=== PATIENT | female | born 1970 | race Caucasian/White ===

== ENCOUNTER 2016-09-15 17:53 | Emergency (ER) | payer OTHER ==
[~2016-09-15] VITALS: Ht 160 cm; Wt 85.8 kg
[~2016-09-15 17:53] MED LIST: ANAS1TAB19 PO; GOSE3.6I; LEVO125T4 PO; LOSA50TA6 PO; [UNRECOGNIZED DRUG - OTHER] PO; [UNRECOGNIZED DRUG - OTHER] PO
[2016-09-15 18:13] VITALS: BP 139/87; PULSE 50; TEMP 36.7; O2SAT 98; Ht 160 cm; Wt 85.8 kg
[2016-09-16] MEDS ORDERED: MULT-506 PO (14:00)
[2016-09-16] MEDS ORDERED: ZINC1TAB PO (14:00)
[2016-09-16] MEDS ORDERED: CZR25 PO (14:00)
== END 2016-09-15 19:27 | disposition left against medical advice (07) ==
LOC: C.EDB 17:55
DX: M79.89 Other specified soft tissue disorders (principal)

== ENCOUNTER 2016-09-16 13:30 | Emergency (ER) | payer OTHER ==
[~2016-09-16] VITALS: Ht 160 cm; Wt 86.0 kg
[2016-09-16 13:32] VITALS: TEMP 37; Ht 160 cm; Wt 86.0 kg
[2016-09-16] MEDS ORDERED: ZINC1TAB PO (14:00)
[2016-09-16] MEDS ORDERED: CZR25 PO (14:00)
[2016-09-16] MEDS ORDERED: MULT-506 PO (14:00)
[2016-09-16 14:41] LABS: BASO % 0.7 %; BASO ABS # 0.04 K/uL (0-0.2); COMPLETE YES; EOS % 3.4 %; HEMATOCRIT 40.3 % (37-47); IG% 0.2 %; LYMPH % 26.2 %; LYMPH ABS # 1.48 K/uL (1.2-3.4); MEAN CELL VOLUME 84.7 fL (80-100); MEAN CORPUSCULAR HEMOGLOBIN 28.6 pg (25-34); MEAN CORPUSCULAR HGB CONC 33.7 g/dl (32-36); MEAN PLATELET VOLUME 10.2 fL (7.4-10.4); MONO % 6.4 %; NEUT % 63.1 %; PLATELET COUNT 272 K/uL (130-400); RED BLOOD COUNT 4.76 M/uL (4.2-5.4); WHITE BLOOD COUNT 5.64 K/uL (4.8-10.8)
[2016-09-16 14:51] LABS: PROTHROMBIN TIME (PATIENT) 10.4 SECONDS (9.0-12.0)
--- NOTE | 2016-09-16 14:53 | DIAGNOSTIC IMAGING REPORT ---
ULTRASOUND VENOUS DOPPLER ULTRASOUND OF THE LEFT UPPER EXTREMITY CLINICAL HISTORY: Left arm swelling COMPARISON STUDY: No previous studies for comparison. FINDINGS: No intraluminal thrombus was visualized. The internal jugular, subclavian, axillary, cephalic, brachial, basilic, radial, and ulnar veins were patent. IMPRESSION: No evidence of left upper extremity DVT. Electronically signed by: Kyle Davis M.D. 09/16/2016 2:52 PM Dictated Date/Time: 09/16/2016 2:51 PM
[2016-09-16 14:57] LABS: BUN/CREATININE RATIO 21.9 (10-20); CALCIUM 9.5 mg/dl (8.5-10.1); CREATININE 0.69 mg/dl (0.60-1.20); POTASSIUM 3.8 mmol/L (3.5-5.1)
[2016-09-16 15:18] VITALS: BP 132/84; PULSE 50; O2SAT 98
--- NOTE | 2016-09-16 21:57 | EMERGENCY ROOM VISIT NOTE ---
History First contact with patient: 13:37 Chief Complaint: REFERRED BY DOCTOR Stated Complaint: LYMPHEDEMIA-PCP REQUESTING History of Present Illness The patient is a 46 year old female who presents to the Emergency Room with complaints of swelling to her left upper arm worsening over the past 4 days. The patient has a history of breast cancer with left mastectomy and reconstruction. She had several lymph nodes removed from her left axilla. She has had a previous episode of lymphedema, and did require physical therapy to assist with resolution of those symptoms. The patient has tried some of her at home therapy without significant improvement of her symptoms. The patient contacted her primary care physician's office, who referred her to the ER for an ultrasound to rule out possible DVT. The patient has not had fever or chills. No chest pain, chest tightness, or shortness of breath. She rates her discomfort a 2/10. Review of Systems More than 10 systems were reviewed and otherwise negative with the exception of history of present illness. Past Medical/Surgical History Medical Problems: (1) Breast cancer (2) Breast cancer (3) Pneumonia (4) URI (upper respiratory infection) Surgical Problems: (1) H/O mastectomy Family History FH: heart disease FHx: cancer Hypertension Social History Smoking Status: Never Smoker Alcohol Use: none Drug Use: none Marital Status: Housing Status: lives with significant other Occupation Status: employed Current/Historical Medications Scheduled Anastrozole (Arimidex), 1 MG PO QAM Goserelin Acetate (Zoladex), 1 DOSE MONTHLY Levothyroxine Sodium (Levothyroxine Sodium), 125 MCG PO QAM Losartan Potassium (Losartan Potassium), 25 MG PO BID Multivitamin (Multivitamin), 1 TAB PO QAM Zinc Gluconate (Zinc), 1 TAB PO QPM Allergies Coded Allergies: Albuterol (Verified Allergy, Mild, 09/16/16) Physical Exam Vital Signs Date Time Temp Pulse Resp B/P Pulse Ox O2 Delivery O2 Flow Rate FiO2 09/16/16 15:18 50 18 132/84 98 Room Air 09/16/16 13:32 37.0 65 16 145/93 100 Pain Rating (0-10): 0 Physical Exam VITALS: Vitals are noted on the nurse's note and reviewed by myself. Vital signs stable. GENERAL: Well-developed, well-nourished, white female, who is in no acute distress and resting comfortably. Patient is cooperative with the examination. HEAD: Normocephalic atraumatic. HEART: Regular rate and rhythm without murmurs gallops or rubs. LUNGS: Clear to auscultation bilaterally without wheezes, rales or rhonchi. No retractions or accessory muscle use. ABDOMEN: Positive normal bowel sounds x 4. Soft, nontender, without masses or organomegaly. No guarding or rebound tenderness. MUSCULOSKELETAL: Mild to moderate lymphedema appreciated within the left upper extremity. There is palpable tenderness over the medial aspect of the olecranon into the volar aspect of the elbow. Neurovascular status is intact. The patient is with full sensation and range of motion. Strength is 5/5 throughout. No palpable cord noted. No evidence of cellulitis or abscess. No foreign body. NEURO: Patient was alert and oriented to person place and time. CN II through XII grossly intact. Medical Decision & Procedures ER Provider Diagnostic Interpretation: ULTRASOUND VENOUS DOPPLER ULTRASOUND OF THE LEFT UPPER EXTREMITY CLINICAL HISTORY: Left arm swelling COMPARISON STUDY: No previous studies for comparison. FINDINGS: No intraluminal thrombus was visualized. The internal jugular, subclavian, axillary, cephalic, brachial, basilic, radial, and ulnar veins were patent. IMPRESSION: No evidence of left upper extremity DVT. Laboratory Results 09/16/16 14:20 Red Blood Count 4.76, Mean Corpuscular Volume 84.7, Mean Corpuscular Hemoglobin 28.6, Mean Corpuscular Hemoglobin Concent 33.7, Mean Platelet Volume 10.2, Neutrophils (%) (Auto) 63.1, Lymphocytes (%) (Auto) 26.2, Monocytes (%) (Auto) 6.4, Eosinophils (%) (Auto) 3.4, Basophils (%) (Auto) 0.7, Neutrophils # (Auto) 3.56, Lymphocytes # (Auto) 1.48, Monocytes # (Auto) 0.36, Eosinophils # (Auto) 0.19, Basophils # (Auto) 0.04 09/16/16 14:20 Test 09/16/16 14:20 White Blood Count 5.64 K/uL (4.8-10.8) Red Blood Count 4.76 M/uL (4.2-5.4) Hemoglobin 13.6 g/dL (12.0-16.0) Hematocrit 40.3 % (37-47) Mean Corpuscular Volume 84.7 fL (80-100) Mean Corpuscular Hemoglobin 28.6 pg (25-34) Mean Corpuscular Hemoglobin Concent 33.7 g/dl (32-36) Platelet Count 272 K/uL (130-400) Mean Platelet Volume 10.2 fL (7.4-10.4) Neutrophils (%) (Auto) 63.1 % Lymphocytes (%) (Auto) 26.2 % Monocytes (%) (Auto) 6.4 % Eosinophils (%) (Auto) 3.4 % Basophils (%) (Auto) 0.7 % Neutrophils # (Auto) 3.56 K/uL (1.4-6.5) Lymphocytes # (Auto) 1.48 K/uL (1.2-3.4) Monocytes # (Auto) 0.36 K/uL (0.11-0.59) Eosinophils # (Auto) 0.19 K/uL (0-0.5) Basophils # (Auto) 0.04 K/uL (0-0.2) RDW Standard Deviation 41.7 fL (36.4-46.3) RDW Coefficient of Variation 13.5 % (11.5-14.5) Immature Granulocyte % (Auto) 0.2 % Immature Granulocyte # (Auto) 0.01 K/uL (0.00-0.02) Prothrombin Time 10.4 SECONDS (9.0-12.0) Prothromb Time International Ratio 1.0 (0.9-1.1) Activated Partial Thromboplast Time 26.1 SECONDS (21.0-31.0) Partial Thromboplastin Ratio 1.0 Anion Gap 9.0 mmol/L (3-11) Est Creatinine Clear Calc Drug Dose 103.6 ml/min Estimated GFR () 119.3 Estimated GFR (Non- 102.9 BUN/Creatinine Ratio 21.9 (10-20) Calcium Level 9.5 mg/dl (8.5-10.1) Total Bilirubin 0.4 mg/dl (0.2-1) Aspartate Amino Transf (AST/SGOT) 15 U/L (15-37) Alanine Aminotransferase (ALT/SGPT) 18 U/L (12-78) Alkaline Phosphatase 91 U/L (45-117) Total Protein 7.5 gm/dl (6.4-8.2) Albumin 3.7 gm/dl (3.4-5.0) Globulin 3.8 gm/dl (2.5-4.0) Albumin/Globulin Ratio 1.0 (0.9-2) ED Course Physical exam and history were performed. Nursing notes and EMR were reviewed. Patient appears to have slowly worsening lymphedema symptoms of left upper extremity. The patient does not appear toxic. IV access was established and labs were obtained. Ultrasound of the are was performed. The patient blood work is as above and was reviewed. She does not have a significantly elevated white blood cell count, gross anemia, bandemia, or significant electrolyte imbalance. Her ultrasound does not show evidence of DVT or other acute etiology of her symptoms. Overall the patient appears stable for discharge home. An Blade wrap was placed to help provide additional compression. The patient was asked to follow with her primary care physician for further management. She was otherwise invited back to the ER with any new, worsening, or concerning symptoms. The chart was completed utilizing [employer] Speech Voice Recognition Software. Grammatical errors, random word insertions, pronoun errors, and incomplete sentences are an occasional consequence of this system due to software limitations, ambient noise, and hardware issues. Any formal questions or concerns about the content, text, or information contained within the body of this dictation should be directly addressed to the provider for clarification. . Medical Decision Differential diagnosis includes, but is not limited to: DVT, PE, thrombophlebitis, abscess, infection, secondary lymphedema, and others Impression Primary Impression: Lymphedema Departure Information Dispostion Home / Self-Care Condition GOOD Referrals Laura Givens M.D. Forms WORK / SCHOOL INSTRUCTIONS, HOME CARE DOCUMENTATION FORM, IMPORTANT VISIT INFORMATION Patient Instructions [facility] Additional Instructions You were seen and evaluated today on an emergency basis only. This is not a substitute for, or an effort to provide, complete comprehensive medical care. It is not possible to recognize and treat all injuries or illnesses in a single emergency department visit. For this reason it is recommended that you followup with your primary care physician this week for ongoing care and evaluation. You are welcome to return to the emergency department anytime with new, worsening, or concerning symptoms.
== END 2016-09-16 15:22 | disposition home or self-care (01) ==
LOC: C.EDB 13:32
DX: I89.0 Lymphedema, not elsewhere classified (principal); Z85.3 Personal history of malignant neoplasm of breast; Z90.12 Acquired absence of left breast and nipple; Z82.49 Family history of ischemic heart disease and other diseases of the circulatory system

== ENCOUNTER → 2017-02-07 | Outpatient (CLI) | payer OTHER ==
[~2017-02-07] MED LIST changes: +CZR25 PO; -LOSA50TA6 PO; +MULT-506 PO; +ZINC1TAB PO; -[UNRECOGNIZED DRUG - OTHER] PO; -[UNRECOGNIZED DRUG - OTHER] PO
[2017-02-07 13:13] VITALS: BP 124/78; PULSE 73; TEMP 37; O2SAT 98
--- NOTE | 2017-02-07 14:55 | Radiation Oncology Follow-Up ---
Radiation Oncology Follow-Up Date of Visit Feb 07, 2017. Reason For Visit Annual follow-up Radiation Completion Date finished 06-23-2015 Diagnosis (1) Breast cancer Status: Resolved Onset Date: 08/29/2014 Histology Subtype: ductal Stage: lll Permanent Comment: DIAGNOSIS: Left breast, invasive ductal carcinoma, grade 2, ER/RI positive, Her2 negative, [id number], stage IIIB Status post biopsy 08/29/2014 Status post left mastectomy and axillary dissection 11/04/2014 with TRAM flap reconstruction Status post completion of chemotherapy with ACT Status post completion of radiation therapy 06/23/2015 received 5040 cGy Last Edited By: Shereen Christopher on Jul 06, 2015 16:54 History of Present Illness Ms. Araujo is a 45-year-old female who presents with locally advanced left breast cancer (invasive ductal carcinoma, grade 2, LVSI present, DCIS present, negative margins,ER/RI positive, HER-2 negative, [id number], stage III). She has been treated with a left modified radical mastectomy and TRAM reconstruction and has had adjuvant chemotherapy. She has met with Dr. Jordan to discuss the role of postmastectomy radiation therapy. Dr. Jordan recommended postmastectomy radiation therapy based on her donnie status. We are now seeing her in consultation for the role of postmastectomy radiation therapy. Based on her donnie status and the NCCN guidelines, we will recommend postmastectomy radiation therapy. Based on the fact that she has had a TRAM reconstruction, we did not recommend a chest wall boost. Interim History She's been doing well over this past year. She does have some muscle tightness at times in her shoulder and arm. She does stretching exercises. She is also been doing yoga. She did have issues with lymphedema. She was seen at the lymphedema clinic. She was thought how to perform massage. She has a sleeve available. She feels that lymphedema is currently under control. She is up-to- date on mammography for the right breast. Allergies Coded Allergies: Albuterol (Verified Allergy, Mild, 09/16/16) Home Medications Scheduled Anastrozole (Arimidex), 1 MG PO QAM Goserelin Acetate (Zoladex), 1 DOSE MONTHLY Levothyroxine Sodium (Levothyroxine Sodium), 125 MCG PO QAM Losartan Potassium (Losartan Potassium), 25 MG PO BID Multivitamin (Multivitamin), 1 TAB PO QAM Zinc Gluconate (Zinc), 1 TAB PO QPM Review of Systems Gastrointestinal: Symptoms: WNL Oral: Symptoms: No Problems Respiratory: Symptoms: Dry Cough Respiratory Comments: patient currently has cold in sinus/chest congestion Other Respiratory: "dry cough at times " Urinary: Symptoms: WNL Skin: Symptoms: No Problems Breast: Right Upper Arm Measurement: 32.5 Right Mid Arm Measurement: 25.5 Right Wrist Measurement: 16.1 Left Upper Arm Measurement: 36.0 Left Mid Arm Measurement: 25.0 Left Wrist Measurement: 16.3 Arm Dominence: Right Patient Cosmetic Evaluation: Excellent Staff Cosmetic Evalaluation: Excellent Physical Exam Vital Signs Date Time Temp Pulse Resp B/P (MAP) Pulse Ox O2 Delivery O2 Flow Rate FiO2 02/07/17 13:13 37.0 73 16 124/78 98 Pain: Side: Bilateral Pain Location: None Patient Pain Scale: 0 - 10 Initial Pain Intensity: 0.0 General Appearance: no apparent distress Eyes: normal inspection, EOMI ENT: normal ENT inspection, hearing grossly normal Neck: no adenopathy, thyroid normal Respiratory/Chest: lungs clear, no respiratory distress, no accessory muscle use Breast: Breast examination reveals status post TRAM flap reconstruction of the left breast. There is edema centrally more in the lower quadrants. There are no masses or tenderness no axillary adenopathy. Using the Gary score cosmesis she has a good outcome. Right breast showed no masses or tenderness and no axillary adenopathy. Cardiovascular: regular rate, rhythm, no gallop, no murmur Abdomen: non tender, soft, no organomegaly Extremities: no pedal edema Neurologic/Psychiatric: no motor/sensory deficits, alert, normal mood/affect Skin: warm/dry Additional Studies She had a mammogram of the right breast 09/08/2016. There is no mammographic abnormality in the right breast. One year follow-up was recommended. BI-RADS Category 1. Assessment & Plan Plan: Continue with regular mammography of the right breast. She continues follow-up with medical oncology and her breast surgeon. She'll continue the stretching exercises for her shoulder. She also continues the therapy for lymphedema. She has been instructed to call if she feels that the lymphedema is not under control. We asked her return to our office in 1 year. She may call if she has any questions or concerns in the interim. Total Time In Follow-Up I spent 20 minutes speaking to the patient performing examination. I spent 15 minutes reviewing information and completeness note. Copy To Marco A Sanchez M.D.; Laura Givens M.D.; Therese Crisostomo M.D. Problem Qualifiers (1) Breast cancer: Breast location: central portion of breast Estrogen receptor status: positive Patient sex: female Laterality: left Qualified Codes: C50.112 - Malignant neoplasm of central portion of left female breast; Z17.0 - Estrogen receptor positive status [ER+]
== END | disposition home or self-care (01) ==
LOC: C.ONC 13:04
PROVIDERS: ATTEND Physician Assistant Medical
DX: Z08 Encounter for follow-up examination after completed treatment for malignant neoplasm (principal); Z92.3 Personal history of irradiation; Z85.3 Personal history of malignant neoplasm of breast